=== PATIENT | male | born 1995 | race Caucasian/White ===

== ENCOUNTER 2018-12-18 12:43 | Emergency (ER) | payer OTHER, SELFPAY ==
[2018-12-18 12:44] VITALS: BP 129/75; PULSE 78; RESP 18; TEMP 36.6; O2SAT 100; BMI 23.0
--- NOTE | 2018-12-18 13:55 | CT_ITS ---
STUDY: CT BRAIN WITHOUT CONTRAST REASON FOR EXAM: Male, 23 years old. Blurred vision. Headache. RADIATION DOSAGE (If Supplied By Facility): CTDIvol = ( 44.99 ) mGy, DLP = ( 779.24 ) mGycm TECHNIQUE: Transaxial CT imaging of the brain was performed without administration of intravenous contrast material. Individualized dose optimization techniques were used for this CT. COMPARISON: No relevant priors. FINDINGS: Normal soft tissue structures. Normal calvarium. Normal size ventricles and extra-axial spaces for the patient's age. Normal white matter tracts of the cerebral hemispheres. Normal basal ganglia and thalami. Normal brainstem. Normal cerebellum. There is no intracranial hemorrhage. There are no findings of an acute ischemic infarction. Normal visualized paranasal sinuses. CT/Brain/Head without Contrast IMPRESSION: Normal unenhanced CT scan of the brain. Electronically Signed: Nicholas Veras MD at 14:45 EDT , Service support ,
--- NOTE | 2018-12-18 13:56 | EKG12_ITS ---
Test Reason : PALPS Blood Pressure : / mmHG Vent. Rate : 065 BPM Atrial Rate : 068 BPM P-R Int : 164 ms QRS Dur : 096 ms QT Int : 372 ms P-R-T Axes : 055 063 044 degrees QTc Int : 386 ms Normal sinus rhythm Normal ECG Confirmed by WATSON BAZAN, MICHELLE ([id number]), web editor CADENCE MARQUES ([id number]) on 12/23/2018 9:41:44 A M Referred By: ABBY/JUMA Confirmed By:PEREZ CHAUDHARI MD
[2018-12-18] MEDS: 0.9% Normal Saline 1,000 ML 1000 ML IV (14:11)
[2018-12-18 14:18] LABS: Absolute Lymphocyte Count 2.06 X10^3/uL (0.83-4.51); Basophil# 0.02 X10^3/uL; Basophil% 0.3 % (0-1); Eosinophils% 1.5 % (0-5); Hematocrit 44.3 % (40-54); Hemoglobin 14.8 g/dL (13.0-16.5); Lymphocyte # 2.06 X10^3/ul (4.0); Lymphocyte % 31.8 % (19-41); Mean Corp Hgb Conc 33.4 g/dL (32-36); Mean Corpuscular Hgb 29.9 pg (27.0-32.0); Mean Corpuscular Volume 89.5 fL (80-94); Mean Platelet Vol. 9.1 fl (6.2-12.0); Monocyte# 0.33 X10^3/uL; Monocyte% 5.1 % (0-10); NRBC Flagged by Analyzer 0 % (0-5); Neutrophil # 3.95 X10^3/uL (2.7-7.7); Neutrophil % 61.1 % (47-70); Platelet Count 303 K/mm3 (150-450); RBC Distribution Width CV 11.9 % (11.6-14.6); RBC Distribution Width SD 38.5 fl (35.1-43.9); Red Blood Count 4.95 M/mm3 (4.6-6.2); White Blood Count 6.5 K/mm3 (4.4-11.0)
[2018-12-18 14:42] LABS: Anion Gap 5 (5-15); BUN 15 mg/dL (7-18); BUN/Creat Ratio 14.2 RATIO (10-20); Calcium,Total 8.9 mg/dL (8.5-10.1); Chloride 105 mmol/L (98-107); Creatinine, Serum 1.06 mg/dL (0.70-1.30); EST Glomerular Filtration Rate 91 mL/min (>60); Est Glom Filt Rate - Afr Amer 110 mL/min (>60); Glucose 81 mg/dL (74-106); Potassium 4.2 mmol/L (3.5-5.1); Sodium Level 140 mmol/L (136-145); Thyroid Stim Hormone (TSH) 1.21 uIU/mL (0.358-3.74)
--- NOTE | 2018-12-18 15:07 | ED.DCSUM_ITS ---
- ER Visit Summary Date of Service: 12/18/18 Chief Complaint: Headache and palpitations History of Present Illness: The patient is a 23 M who reports that last night at approximately 11 PM he began seeing bright dots in his peripheral vision on the left. This lasted approximately 20 minutes. Approximate 1 hour later he developed a headache in that location as well. He reports that it was 5 out of 10 at worst and 2 out of 10 currently. He describes it as a dull headache. It was gradual in onset. He had photophobia last night. That has now resolved. He denies any associated nausea or vomiting. Has had no injury to his head. Patient reports that he has palpitations that began approximately same time. He describes this as a fast heart rate. He also reports that he had chest heaviness that lasted approximately [address] However, patient reports that he drinks lots of energy drinks. He states that he was doing well today until he began drinking energy drinks and drank 2 of these over the course of 3 hours. He then developed palpitations again. Physical Examination: Vitals: Stable. Afebrile. General: Well-nourished and well-developed. Head: Normocephalic atraumatic. Neck: Supple, no lymphadenopathy. No JVD. Nontender. Cardiovascular: Regular rate and rhythm. No murmurs. Respiratory: No respiratory distress. Clear to auscultation bilaterally. Abdominal: Soft, nontender, nondistended, normal bowel sounds. No guarding, rebound, or peritoneal signs. Back: Nontender. Extremities: Nontender, no edema. Skin: Normal color, no rash. Neurologic: Alert and oriented ?3. Cranial nerves II through XII are intact. Normal strength and sensation. Psych: Normal affect. Test Results: EKG is sinus at [address] changes. Troponin is negative. Chem-7 is normal. CBC is normal. TSH is normal. CT brain is normal. Emergency Department Course and Treatment: Patient is resting comfortably while here. He refused any pain medications. He was given a liter normal saline. Treatment Plan: Patient's initial onset of his headache is quite classic for migraine with a preceding aura. He does not want medications for home. He will be discharged with instructions to follow-up with Dr. Conley as needed. Return to the emergency department for any worsening symptoms. Disposition: To home in improved and stable condition. Impression: 1. Migraine headache. 2. Palpitations. This note was generated with [employer] dictation software. It may contain incorrect words, spelling, and punctuation that were not noted in review of the chart prior to signing ED Disposition - Plan for ED Patient: Disposition: Home or Assisted Living Instructions: ED, Migraine (Classical), Palpitations Referrals: Luis Conley MD [Primary Care Provider] - 1 Week
[2018-12-18 15:14] VITALS: BP 116/76; PULSE 68; RESP 16; O2SAT 100
== END 2018-12-18 15:15 | disposition home or self-care (01) ==
LOC: ED 14:13
PROVIDERS: Emergency Provider Emergency Medicine; Family Provider Family Medicine; PCP Family Medicine
DX: G43.909 Migraine, unspecified, not intractable, without status migrainosus (principal); R00.2 Palpitations; R07.89 Other chest pain; R06.00 Dyspnea, unspecified; Z72.0 Tobacco use
CPT/HCPCS: 70450; 80048; 84443; 84484; 85025; 93005; 96360; 99284; J7030; A4216